=== PATIENT | male | born 1985 | race Caucasian/White ===

== ENCOUNTER → 2020-04-13 | Outpatient (CLI) | payer OTHER ==
[~2020-04-13] MED LIST: FLEXERIL 10 MG10 MG PO; VOLTAREN EC 5050 MG PO
[2020-04-13 18:33] LABS: HEMOGLOBIN 16.8 gm/dl (14.0-17.5); RED BLOOD COUNT 5.9 M/UL (4.20-5.50); WHITE BLOOD COUNT 9.3 K/UL (4.5-11.0)
[2020-04-13 18:53] LABS: BUN/CREATININE RATIO 15 (0-10)
== END ==
LOC: LAB 17:59
PROVIDERS: Surgery
DX: K42.9 Umbilical hernia without obstruction or gangrene (principal)
CPT/HCPCS: 36415; 80048; 85025